=== PATIENT | male | born 1930 | race Caucasian/White ===

== ENCOUNTER 2016-10-04 06:43 | Emergency (ER) | payer OTHER ==
--- NOTE | 2016-10-04 08:28 | ED ORDER SUMMARY ---
..... Patient: ALEXANDRO TORRES OrderSheet [facility] VisitID: [id number] [place] [address] 85y, M Registration Date/Time: 10/04/2016 ORDER SHEET Weight: 68.4 kg (stated) Allergies: No Known Drug Allergy GENERAL ORDERS: Chest 1V Urgent (07:02 10/04/2016 JQuivey R.N. per protocol) (Ack 7:06 TBergley) (7:15 TBergley) Furnace Process Plant Operator (Continuous) (CP) (07:02 10/04/2016 JQuivey R.N. per protocol) (7:02 JQuivey R.N.) Cardiac Panel Stat (07:10/04/2016 JQuivey R.N. per protocol) (Ack 7:06 TBergley) Pulse oximeter (07:02 10/04/2016 JQuivey R.N. per protocol) (7:02 JQuivey R.N.) EKG - ER Stat (07:02 10/04/2016 JQuivey R.N. per protocol) (7:03 JQuivey R.N.) MEDICATION ORDERS: IV FLUIDS: IV Saline Lock (07:02 10/04/2016 JQuivey R.N. per protocol) (7:03 JQuivey R.N.) ORDER SHEET NOTES: [Electronically signed by Veena Trotter R.N. (19:04 10/05/2016)] [Electronically signed by Naeem Morales MD (00:30 10/07/2016)] [Electronically locked/signed by Veena Trotter R.N. (19:04 10/05/2016)]
--- NOTE | 2016-10-04 08:28 | ED NURSING NOTES ---
Clinical Report - Nurses [facility] [address] [place] [address] 10/04/2016 6:45 Patient: ALEXANDRO TORRES TRIAGE Triage time 06:43. Acuity: LEVEL 3. Chief Complaint: CHEST PAIN. 06:59. Alert. SEPSIS SCREEN: Sepsis Screen. Negative (no infection suspected/documented). --06:59 Inderjit Marks R.N. 06:43 10/04/16. BP: 149/77. HR: 60. RR: 14. O2 saturation: 96% on room air. Temp: 98.4 F (oral). Pain level now: 0/10. --06:59 Inderjit Marks R.N. Weight: 68.4 kg stated. Height/Length: 66 inches Per Patient. BMI: 24.4. --06:45 Inderjit Marks R.N. Medications Carbidopa-Levodopa Oral (Tablet Dispersible 25-100 mg) 2 tablets, 4x a day. --06:54 Inderjit Marks R.N. Lasix Oral 40 mg, daily. --06:55 Inderjit Marks R.N. ROPINIRole HCl Oral (Tablet 1 mg) 1 tablet, 4 x daily. --06:56 Inderjit Marks R.N. Simvastatin Oral 20 mg, at bedtime. --06:56 Inderjit Marks R.N. Allergies No Known Drug Allergy. --06:56 Inderjit Marks R.N. Medication/allergy information source: the patient (records from [facility]). --06:59 Inderjit Marks R.N. History Arrived by EMS. Historian: patient. Unaccompanied. Primary physician (Aneudy). Onset. (about 20 COLLEGE INTERN). Treatment COLLEGE INTERN: EMS treatment COLLEGE INTERN verbally communicated. Pre-hospital 12-lead EKG time: (617). Pre-hospital 12-lead EKG performed on-scene and interpreted by EMS. Medications given- ASA (324 mg). ( EMS reports that pt normally lives at home with his but is at [facility] following a shoulder injury. This AM about 20min COLLEGE INTERN pt was awoken with 10/10 chest pain radiating to his shoulder and arm by the time EMS arrived on scene pt was feeling better and by the time pt arrived in ED pt was pain free). PAST MEDICAL HX: Immunizations: up-to-date. SOCIAL HX: Former smoker, end date 1971. Occasional alcohol use. No drug use. No infectious disease exposure. ABUSE ASSESSMENT: No report of abuse. FALL RISK ASSESSMENT: Fall risk assessment completed. Risk factors identified include patient history of fall and impairment of mobility. Fall interventions initiated. Patient placed on stretcher. Side rails up x2. Call light in reach of patient. Instructed not to get up without assistance. --06:59 Inderjit Marks R.N. PROBLEMS: Hypercholesterolemia. Parkinson's Disease. --06:57 Inderjit Marks R.N. Hypertension. --06:59 Inderjit Marks R.N. ADDITIONAL SURGERIES: Appendectomy. Fracture repair ankle . Hernia Repair. --06:57 Inderjit Marks R.N. Interventions ID band on patient. To treatment room. --06:59 Inderjit Marks R.N. PHYSICAL ASSESSMENT 06:44. To room via stretcher. Patient gowned. GENERAL / NEURO / PSYCH: Alert. Oriented X 4. HEENT: Mucous membranes are pink. RESPIRATORY: Respirations not labored. SKIN: Skin is warm and dry. Normal skin turgor. --06:52 Inderjit Marks R.N. NURSING PROGRESS NOTES 06:45. Head of bed elevated. Two patient identifiers checked. Call light placed in reach. Bed placed in lowest position. Brakes of bed on. Patient ready for evaluation- chart flagged. --06:51 Inderjit Marks R.N. 06:47 10/04/2016 Site #1 started via IV in the left forearm with an 20g angiocath, with aseptic technique and good blood return; one attempt. Blood drawn: rainbow set. Labeled in the presence of the patient and sent to the lab. Saline lock flushed with 10 mL saline (By Misbah SAPP). --06:52 Inderjit Marks R.N. 06:46. fire prevention officer, pulse oximeter and NIBP monitor placed on patient; monitor alarms on. --06:53 Inderjit Marks R.N. 07:01. EKG time: (702). EKG was performed by a tech and shown to the ED physician. --07:01 Inderjit Marks R.N. 07:11. Portable chest x-ray performed. --07:16 Inderjit Marks R.N. 07:16. Care transferred and report given (Jerrell Hollingsworth EDRN). --07:16 Inderjit Marks R.N. 08:30 10/04/16. BP: 113/59. HR: 57. RR: 13. O2 saturation: 97%. 08:00 10/04/16. BP: 109/55. HR: 56. RR: 17. O2 saturation: 96%. 07:30 10/04/16. BP: 96/61. HR: 56. RR: 16. O2 saturation: 94%. --08:50 Veena Trotter R.N. DISPOSITION / DISCHARGE Condition at departure: improved. No learning barriers present. Discharge instructions provided and reviewed with the patient. Reviewed warnings. Reviewed medication(s). Treatments reviewed. Reviewed referrals. Patient verbalized understanding. Written instructions provided in Danish. The patient was discharged to the long term and accompanied by spouse. He left the Emergency Department via ambulance and (pt is not mobile) and on a stretcher. Driving (ambulance). --08:51 Veena Trotter R.N. 08:30 10/04/16. BP: 113/59. HR: 57. RR: 13. O2 saturation: 97%. --08:51 Veena Trotter R.N. Departure time: 09:15 Oct 04 2016. ( report given to EMS.). --09:15 Veena Trotter R.N. Locked/Released at 10/05/2016 19:04 by Veena Trotter R.N.
--- NOTE | 2016-10-04 08:28 | ED CLINICAL REPORT ---
Clinical Report - Physicians/Mid Levels [facility] [address] [place] [address] 10/04/2016 6:45 Patient: ALEXANDRO TORRES Time Seen: 07:16 Oct 04 2016. Arrived- By ambulance. Historian- patient and EMS personnel. CPT: ER phys charges level 4 plus (#[id number]). EKG interpretation (#[id number]). HISTORY OF PRESENT ILLNESS Chief Complaint: CHEST PAIN. It is described as pressure and it is described as located in the central chest area. At its maximum, severity described as moderate. When seen in the E.D., it was gone. Modifying factors. Not worsened by anything. Not relieved by anything. This started just prior to arrival and is now gone. Onset during light activity. No nausea, vomiting, difficulty breathing or diaphoresis. Similar symptoms previously: Several times, as bad. ( says he has as spell once a month. His PCP is aware. No dx at this point. Spells only last 5 to 10 minutes.). Diagnosis: unknown. Recent medical care: Not recently seen/assessed. REVIEW OF SYSTEMS No fever, chills, cough, pedal edema or calf pain. No fainting episodes, sore throat, abdominal pain, black stools or difficulty with urination. No skin rash or bloody stools. He has had moderate joint pain, involving the right shoulder. Cannot walk baseline due to parkinson's. Is in PT for this. Recent fall with fracture of the right shoulder. All systems otherwise negative, except as recorded above. PAST HISTORY Hypercholesterolemia. Parkinson's Disease: Hypertension. ADDITIONAL SURGERIES: Appendectomy. Fracture repair ankle . Hernia Repair. -- Right shoulder fracture due to fall. Medications: Simvastatin Oral 20 mg, at bedtime. ROPINIRole HCl Oral (Tablet 1 mg) 1 tablet, 4 x daily. Lasix Oral 40 mg, daily. Carbidopa-Levodopa Oral (Tablet Dispersible 25-100 mg) 2 tablets, 4x a day. Allergies: No Known Drug Allergy. SOCIAL HISTORY Former smoker. Occasional alcohol use. No drug use. ADDITIONAL NOTES The nursing notes have been reviewed. PHYSICAL EXAM Vital Signs: 10/04/2016 06:43 BP: 149/77. HR: 60. RR: 14. O2 saturation: 96%. Temp: 98.4 F. Pain level now: 0/10. Appearance: Alert. No acute distress. Eyes: Pupils equal, round and reactive to light. Eyes normal inspection. ENT: Ears normal. Nose normal. Pharynx normal. Neck: Normal inspection. Neck supple. CVS: Normal heart rate and rhythm. 2/6 mid systolic murmur. Pulses normal. Respiratory: No respiratory distress. Breath sounds normal. Chest nontender. Abdomen: Soft and nontender. Bowel sounds normal. Back: Normal external inspection. Skin: Skin warm. Normal skin color. No rash. Extremities: Extremities exhibit normal ROM. No calf tenderness. No lower extremity edema. Neuro: Oriented X 3. No motor deficit. No sensory deficit. Reflexes normal. LABS, X-RAYS, AND EKG EKG: Normal sinus rhythm. Normal P waves. First-degree atrioventricular block. Normal QRS complex. Normal ST and T waves. The study has been interpreted contemporaneously. The study has been independently viewed by me. The EKG appears to be a good tracing. Laboratory Tests: CBC w Diff: (BEN: 10/04/2016 06:51) ( MsgRcvd 10/04/2016 07:11) Final results Test Result Flag Units (Reference) WHITE BLOOD COUNT 8.9 K/uL (4.5-11.5) RED BLOOD COUNT 3.95 L M/uL (4.50-5.90) HEMOGLOBIN 12.5 L gm/dL (13.5-17.5) HEMATOCRIT 37.5 L % (41.0-53.0) MEAN CELL VOLUME 95 fL (80-100) MEAN CORPUSCULAR HGB 32 pg (26-34) MEAN CORPUSCULAR HGB CONC 33 g/dL (31-37) RED CELL DISTRIBUTION WIDTH 13.7 % (11.6-14.8) PLATELET COUNT 307 K/uL (150-400) NEUTROPHIL % 81.8 H % (50-75) LYMPH % 9.3 L % (25-40) MONO % 7.1 % (3-14) EOSINOPHIL % 1.5 % (0-4) BASOPHIL % 0.3 % (0-2) CHEM 13 PANEL: (BEN: 10/04/2016 06:51) ( MsgRcvd 10/04/2016 07:23) Final results Test Result Flag Units (Reference) GLUCOSE 108 mg/dL (70-110) BUN 28 H mg/dL (7-18) CREATININE 1.0 mg/dL (0.6-1.3) Estimated GFR >60 mL/min Estimated GFR- >60 mL/min Note: Persistent reduction over 3 months in eGFR<60 mL/min/1.73 m2 defines CKD. Patients with eGFR values>=60 mL/min/1.73 m2 may also have CKD if evidence ofpersistent proteinuria. Additional information may be foundat www.kidney.org. SODIUM 140 mmol/L (136-145) POTASSIUM 4.1 mmol/L (3.5-5.1) CHLORIDE 102 mmol/L (98-107) CARBON DIOXIDE 31 mmol/L (21-32) CALCIUM 9.1 mg/dL (8.5-10.1) TOTAL PROTEIN 7.2 g/dL (6.4-8.2) ALBUMIN 3.3 g/dL (3.3-5.0) BILIRUBIN, TOTAL 0.9 mg/dL (0.0-1.0) ALKALINE PHOSPHATASE 69 U/L (46-116) AST (SGOT) 11 L U/L (15-37) ALT (SGPT) 9 L U/L (12-78) CPK 29 U/L (24-260) MAGNESIUM 2.5 H mg/dL (1.8-2.4) TROPONIN I <0.05 L ng/mL (0.00-1.5) TROPONIN REFERENCE RANGE:<0.1 NEGATIVE0.1-1.5 INDETERMINANT>1.5 POSITIVE . PROGRESS AND PROCEDURES Course of Care: No sign of CAD on EKG or lab. Pt with no hx in the past. He wants to go home at this point. He will return if symptoms return. Patient/family counseled. Disposition: Discharged. Condition: stable and improved. CLINICAL IMPRESSION Precordial chest pain characterized as "discomfort" .12 lead EKG performed. INSTRUCTIONS Warnings: Further evaluation is necessary. GENERAL WARNINGS: Return or contact your physician immediately if your condition worsens or changes unexpectedly, if not improving as expected, or if other problems arise. Your Current Medications: CONTINUE TAKING THE FOLLOWING MEDICATIONS: Carbidopa-Levodopa Oral : Tablet Dispersible 25-100 mg, 2 tablets 4x a day. Lasix Oral : 40 mg daily. ROPINIRole HCl Oral : Tablet 1 mg, 1 tablet 4 x daily. Simvastatin Oral : 20 mg at bedtime. Follow-up: Follow up with your doctor in one week. Call for an appointment. Understanding of the discharge instructions verbalized by patient and family. Discharge instructions reviewed with and understanding was verbalized by spouse. (Electronically signed by Naeem Morales MD 10/07/2016 0:30)
--- NOTE | 2016-10-04 08:28 | ED ORDER SUMMARY ---
..... Patient: ALEXANDRO TORRES OrderSheet [facility] VisitID: [id number] [place] [address] 85y, M Registration Date/Time: 10/04/2016 ORDER SHEET Weight: 68.4 kg (stated) Allergies: No Known Drug Allergy GENERAL ORDERS: Chest 1V Urgent (07:02 10/04/2016 JQuivey R.N. per protocol) (Ack 7:06 TBergley) (7:15 TBergley) Concierge Receptionist (Continuous) (CP) (07:02 10/04/2016 JQuivey R.N. per protocol) (7:02 JQuivey R.N.) Cardiac Panel Stat (07:10/04/2016 JQuivey R.N. per protocol) (Ack 7:06 TBergley) Pulse oximeter (07:02 10/04/2016 JQuivey R.N. per protocol) (7:02 JQuivey R.N.) EKG - ER Stat (07:02 10/04/2016 JQuivey R.N. per protocol) (7:03 JQuivey R.N.) MEDICATION ORDERS: IV FLUIDS: IV Saline Lock (07:02 10/04/2016 JQuivey R.N. per protocol) (7:03 JQuivey R.N.) ORDER SHEET NOTES: [Electronically signed by Veena Trotter R.N. (19:04 10/05/2016)] [Electronically signed by Naeem Morales MD (00:30 10/07/2016)] [Electronically locked/signed by Veena Trotter R.N. (19:04 10/05/2016)]
--- NOTE | 2016-10-04 08:28 | ED NURSING NOTES ---
Clinical Report - Nurses [facility] [address] [place] [address] 10/04/2016 6:45 Patient: ALEXANDRO TORRES TRIAGE Triage time 06:43. Acuity: LEVEL 3. Chief Complaint: CHEST PAIN. 06:59. Alert. SEPSIS SCREEN: Sepsis Screen. Negative (no infection suspected/documented). --06:59 Inderjit Marks R.N. 06:43 10/04/16. BP: 149/77. HR: 60. RR: 14. O2 saturation: 96% on room air. Temp: 98.4 F (oral). Pain level now: 0/10. --06:59 Inderjit Marks R.N. Weight: 68.4 kg stated. Height/Length: 66 inches Per Patient. BMI: 24.4. --06:45 Inderjit Marks R.N. Medications Carbidopa-Levodopa Oral (Tablet Dispersible 25-100 mg) 2 tablets, 4x a day. --06:54 Inderjit Marks R.N. Lasix Oral 40 mg, daily. --06:55 Inderjit Marks R.N. ROPINIRole HCl Oral (Tablet 1 mg) 1 tablet, 4 x daily. --06:56 Inderjit Marks R.N. Simvastatin Oral 20 mg, at bedtime. --06:56 Inderjit Marks R.N. Allergies No Known Drug Allergy. --06:56 Inderjit Marks R.N. Medication/allergy information source: the patient (records from [facility]). --06:59 Inderjit Marks R.N. History Arrived by EMS. Historian: patient. Unaccompanied. Primary physician (Aneudy). Onset. (about 20 HISTOLOGY SPECIALIST). Treatment HISTOLOGY SPECIALIST: EMS treatment HISTOLOGY SPECIALIST verbally communicated. Pre-hospital 12-lead EKG time: (617). Pre-hospital 12-lead EKG performed on-scene and interpreted by EMS. Medications given- ASA (324 mg). ( EMS reports that pt normally lives at home with his but is at [facility] following a shoulder injury. This AM about 20min HISTOLOGY SPECIALIST pt was awoken with 10/10 chest pain radiating to his shoulder and arm by the time EMS arrived on scene pt was feeling better and by the time pt arrived in ED pt was pain free). PAST MEDICAL HX: Immunizations: up-to-date. SOCIAL HX: Former smoker, end date 1971. Occasional alcohol use. No drug use. No infectious disease exposure. ABUSE ASSESSMENT: No report of abuse. FALL RISK ASSESSMENT: Fall risk assessment completed. Risk factors identified include patient history of fall and impairment of mobility. Fall interventions initiated. Patient placed on stretcher. Side rails up x2. Call light in reach of patient. Instructed not to get up without assistance. --06:59 Inderjit Marks R.N. PROBLEMS: Hypercholesterolemia. Parkinson's Disease. --06:57 Inderjit Marks R.N. Hypertension. --06:59 Inderjit Marks R.N. ADDITIONAL SURGERIES: Appendectomy. Fracture repair ankle . Hernia Repair. --06:57 Inderjit Marks R.N. Interventions ID band on patient. To treatment room. --06:59 Inderjit Marks R.N. PHYSICAL ASSESSMENT 06:44. To room via stretcher. Patient gowned. GENERAL / NEURO / PSYCH: Alert. Oriented X 4. HEENT: Mucous membranes are pink. RESPIRATORY: Respirations not labored. SKIN: Skin is warm and dry. Normal skin turgor. --06:52 Inderjit Marks R.N. NURSING PROGRESS NOTES 06:45. Head of bed elevated. Two patient identifiers checked. Call light placed in reach. Bed placed in lowest position. Brakes of bed on. Patient ready for evaluation- chart flagged. --06:51 Inderjit Marks R.N. 06:47 10/04/2016 Site #1 started via IV in the left forearm with an 20g angiocath, with aseptic technique and good blood return; one attempt. Blood drawn: rainbow set. Labeled in the presence of the patient and sent to the lab. Saline lock flushed with 10 mL saline (By Misbah SAPP). --06:52 Inderjit Marks R.N. 06:46. logistics team leader, pulse oximeter and NIBP monitor placed on patient; monitor alarms on. --06:53 Inderjit Marks R.N. 07:01. EKG time: (702). EKG was performed by a tech and shown to the ED physician. --07:01 Inderjit Marks R.N. 07:11. Portable chest x-ray performed. --07:16 Inderjit Mraks R.N. 07:16. Care transferred and report given (Jerrell Hollingsworth EDRN). --07:16 Inderjit Marks R.N. 08:30 10/04/16. BP: 113/59. HR: 57. RR: 13. O2 saturation: 97%. 08:00 10/04/16. BP: 109/55. HR: 56. RR: 17. O2 saturation: 96%. 07:30 10/04/16. BP: 96/61. HR: 56. RR: 16. O2 saturation: 94%. --08:50 Veena Trotter R.N. DISPOSITION / DISCHARGE Condition at departure: improved. No learning barriers present. Discharge instructions provided and reviewed with the patient. Reviewed warnings. Reviewed medication(s). Treatments reviewed. Reviewed referrals. Patient verbalized understanding. Written instructions provided in [place]. [facility] and accompanied by spouse. He left the Emergency Department via ambulance and (pt is not mobile) and on a stretcher. Driving (ambulance). --08:51 Veena Trotter R.N. 08:30 10/04/16. BP: 113/59. HR: 57. RR: 13. O2 saturation: 97%. --08:51 Veena Trotter R.N. Departure time: 09:15 Oct 04 2016. ( report given to EMS.). --09:15 Veena Trotter R.N. Locked/Released at 10/05/2016 19:04 by Veena Trotter R.N.
--- NOTE | 2016-10-04 10:46 | DIAGNOSTIC IMAGING REPORT ---
PROCEDURE: XR CHEST 1 VIEW INDICATION: CHEST PAIN TECHNIQUE: Portable AP view 07:14 a.m. COMPARISON: None. FINDINGS: Two rounded opacities in the right lung base which probably represent artifacts. Heart and mediastinum are normal. Thorax is normal. IMPRESSION: 1. Two rounded right basilar opacities which probably represent artifacts. Recommend two-view chest x-ray.
--- NOTE | 2016-10-07 00:31 | ED DISCHARGE INSTRUCTIONS ---
Patient: ALEXANDRO TORRES General Instructions [facility] VisitID: [id number] [place] [address] 85y, M Registration Date/Time: 10/04/2016 Precordial chest pain characterized as "discomfort" .12 lead EKG performed. INSTRUCTIONS Warnings: Further evaluation is necessary. GENERAL WARNINGS: Return or contact your physician immediately if your condition worsens or changes unexpectedly, if not improving as expected, or if other problems arise. Your Current Medications: CONTINUE TAKING THE FOLLOWING MEDICATIONS: Carbidopa-Levodopa Oral : Tablet Dispersible 25-100 mg, 2 tablets 4x a day. Lasix Oral : 40 mg daily. ROPINIRole HCl Oral : Tablet 1 mg, 1 tablet 4 x daily. Simvastatin Oral : 20 mg at bedtime. Follow-up: Follow up with your doctor in one week. Call for an appointment. Understanding of the discharge instructions verbalized by patient and family. Discharge instructions reviewed with and understanding was verbalized by spouse. ADDITIONAL INFORMATION Chest Pain, Uncertain Cause Chest pain can happen for a number of reasons. Sometimes the cause can not be determined. If yourcondition does not seem serious, and your pain does not appear to be coming from your heart, your doctor may recommend watching it closely. Sometimes the signs of a serious problem take more time to appear. Therefore, watch for the warning signs listed below. Home care After your visit, follow these recommendations: Rest today and avoid strenuous activity. Take any prescribed medicine as directed. Follow-up care Follow up with your doctor or this facility as instructed or if you do not start to feel better within 24 hours. Call 911 Get immediate medical attention if any of the following occur: A change in the type of pain: if it feels different, becomes more severe, lasts longer, or begins to spread into your shoulder, arm, neck, jaw or back Shortness of breath or increased pain with breathing Weakness, dizziness, or fainting Rapid heart beat Get prompt medical attention Call your doctor right away if any of the following occur: Cough with dark colored sputum (phlegm) or blood Fever of 100.4F(38C) or higher, or as directed by your health care provider Swelling, pain or redness in one leg You have been given the following additional information: Chest Pain, Uncertain Cause (Electronically signed by Naeem Morales MD 10/07/2016 0:30)
--- NOTE | 2016-10-07 00:31 | ED MAR SUMMARY ---
..... Medication Administration Record [facility] [address] [place], [place] [id number] Patient: ALEXANDRO TORRES Visit ID: [id number] 85y, M Weight: 68.4 kg Height/Length: 66 in BMI: 24.4 ALLERGIES: No Known Drug Allergy
--- NOTE | 2016-10-07 00:31 | ED MED RECONCILIATION SUMMARY ---
Patient: ALEXANDRO TORRES Medication Reconciliation Report [facility] VisitID: [id number] [address] [place] [address] 85y, M Registration Date/Time: 10/04/2016 Weight: 68.4 kg Height/Length: 66 in. BMI: 24.4 ALLERGIES: No Known Drug Allergy The patient's Home Medications are listed below: CONTINUE TAKING THE FOLLOWING MEDICATIONS: Carbidopa-Levodopa Oral (25-100 mg) 2 tablets, 4x a day Lasix Oral 40 mg, daily ROPINIRole HCl Oral (1 mg) 1 tablet, 4 x daily Simvastatin Oral 20 mg, at bedtime The source(s) of the original Home Medication information: patient records from [facility] The following Medications were given to the patient in the Emergency Department: None. The following Medications were prescribed to the patient: None.
--- NOTE | 2016-10-07 00:31 | ED MED RECONCILIATION SUMMARY ---
Patient: ALEXANDRO TORRES Medication Reconciliation Report [facility] VisitID: [id number] [address] [place] [address] 85y, M Registration Date/Time: 10/04/2016 Weight: 68.4 kg Height/Length: 66 in. BMI: 24.4 ALLERGIES: No Known Drug Allergy The patient's Home Medications are listed below: CONTINUE TAKING THE FOLLOWING MEDICATIONS: Carbidopa-Levodopa Oral (25-100 mg) 2 tablets, 4x a day Lasix Oral 40 mg, daily ROPINIRole HCl Oral (1 mg) 1 tablet, 4 x daily Simvastatin Oral 20 mg, at bedtime The source(s) of the original Home Medication information: patient records from [facility] The following Medications were given to the patient in the Emergency Department: None. The following Medications were prescribed to the patient: None.
--- NOTE | 2016-10-07 00:31 | ED MAR SUMMARY ---
..... Medication Administration Record [facility] [address] [place], [place] [id number] Patient: ALEXANDRO TORRES Visit ID: [id number] 85y, M Weight: 68.4 kg Height/Length: 66 in BMI: 24.4 ALLERGIES: No Known Drug Allergy
== END 2016-10-04 08:40 | disposition home or self-care (01) ==
LOC: ED SRH 06:43
DX: R07.89 Other chest pain (principal); I10 Essential (primary) hypertension; G20 Parkinson's disease; E78.00 Pure hypercholesterolemia, unspecified; Z79.899 Other long term (current) drug therapy
CPT/HCPCS: 90100; 90616; 92610; 92720; 95059